=== PATIENT | female | born 1955 | race Caucasian/White ===

== ENCOUNTER 2025-04-25 16:04 | Emergency (ER) | payer MEDICARE, OTHER, SELFPAY ==
--- NOTE | ~2025-04-25 | XR_ITS ---
EXAMINATION: XR chest 2V, 04/25/2025 16:45 CDT HISTORY: Cough, 1 month, history of COVID COMPARISON: No comparisons available. Technique: 2 views obtained. Findings: Small right lower lobe infiltrate No pneumothorax. Heart is normal size. Mediastinal and hilar contours are within normal limits. Bony thorax no acute abnormality. Impression: Small right lower lobe pneumonia Reviewed, dictated and finalized at location P. Impression: Small right lower lobe pneumonia
--- NOTE | 2025-04-25 16:11 | ED_ITS ---
HPI - URI/Sore Throat General Chief Complaint: Upper Respiratory Infection Stated Complaint: Cough/Sinus Time Seen by Provider: 04/25/25 16:20 Source: patient, RN notes reviewed and old records reviewed Mode of arrival: ambulatory Limitations: no limitations History of Present Illness HPI Narrative: 69-year-old female presents to the [facility] with a cough and sinus drainage for 1 month. States that started when she has self tested positive for COVID-19 1 month ago. Was seen at an urgent care on April 11, prescribe Zyrtec, Flonase and a steroid. Was prescribe doxycycline on April 16 Reports after both treatments finished symptoms did not improve. Denies chest pain or shortness of breath. Has not followed up with PCM. Onset (ago): month(s) (1+) Treatments prior to arrival: cold medicine and antibiotics Related Data Allergies Allergy/AdvReac Type Severity Reaction Status Date / Time Penicillins Allergy Unknown Anaphylaxis Verified 04/25/25 16:09 Review of Systems Review of Systems: All systems reviewed & are unremarkable except as noted in HPI and below Constitutional: Constitutional: Reports no additional constitutional complaints ENT: Reports as per HPI Cardiovascular: Cardiovascular: Reports no additional cardiovascular complaints, Denies chest pain and Denies dyspnea Respiratory: Respiratory: Reports as per HPI, Reports chest congestion, Reports cough, Denies pain with cough and Denies dyspnea Musculoskeletal: Musculoskeletal: Reports no additional musculoskeletal complaints Integumentary/Breasts: Skin/Breast: Reports system reviewed and no additional complaints, except as docu PMFSH Past Medical History Medical History Pneumonia Liver disease Family History Family History Father Diabetes mellitus Social History Social History Smoking packs per day: 1 Smoking cigarettes per day: 20.0 Smoking status: Current every day smoker Second hand tobacco smoke exposure: Yes Alcohol intake: never Substance use: never Substance use type: does not use Do You Feel Safe in your Home?: Yes Lack of Transportation: No Lack of Food: Never True Current Housing: I Have Housing Concerned About Future Housing: No Difficulty Paying Gas/Electric Bills: No Difficulty Paying for Meds: No Currently Unemployed: No Education: Associate Degree Difficulty w/ Childcare or Family Care: No Living arrangements: alone Occupation/Education: retired Additional occupation/education comments: [employer] Gender identity (if verbalized by the patient): Female Comments At the time of my signature, I reviewed and agree with the nursing past medical, surgical, social, and family history. There is no relevant family history pertinent to the patient complaint. Exam Const: General: cooperative, no acute distress, well developed, alert, tired appearing and well nourished Nutritional Appearance: well nourished Orientation/consciousness: patient oriented x3 Limitations: no limitations HENMT: Head: normal to inspection Ears: hearing grossly normal bilaterally, external ears normal, TM's normal bilaterally, EAC's normal, mastoids normal and no periauricular adenopathy Throat: posterior oropharynx normal, uvula midline and no uvular edema Eyes: General: appearance normal, both eyes and all related structures Alignment and Position: alignment normal Neck: Neck: normal visual inspection, full ROM, no lymphadenopathy and no meningeal signs Chest: Chest palpation & inspection: normal inspection of the chest Resp: Effort & Inspection: normal respiratory effort and able to speak in complete sentences Auscultation: no crackles, no rales, no rhonchi, no wheezes and diminished lung sounds bilateral Cardio: Rate: regular rate Skin: General skin exam: normal color and no rashes or lesions noted Neuro: General: patient oriented x3, gait normal, moves all extremities and no meningeal signs Cognition (Neuro): normal cognition Speech: normal speech Gait exam (Neuro): Normal gait present Extrem: General: normal to inspection, full ROM, capillary refill normal and normal gait Psych: Appearance: grossly normal and well kempt Mental Status: mental status grossly normal Speech and movement: Normal speech and movement present and Clear speech present Affect: normal affect Attitude: cooperative Course Course Level of Care: Express Care Visit Vital Signs Vital signs: Vital Signs Temperature 98.2 F 04/25/25 16:18 Pulse Rate 70 04/25/25 16:18 Respiratory Rate 20 04/25/25 16:18 Blood Pressure 150/54 H 04/25/25 16:18 Pulse Oximetry 98 04/25/25 16:18 Oxygen Delivery Room Air 04/25/25 16:18 Temperature 98.2 F 04/25/25 16:18 Pulse Rate 70 04/25/25 16:18 Respiratory Rate 20 04/25/25 16:18 Blood Pressure 150/54 H 04/25/25 16:18 Pulse Oximetry 98 04/25/25 16:18 Oxygen Delivery Room Air 04/25/25 16:18 Reviewed MDM - URI/Sore Throat MDM Narrative Medical decision making narrative: Patient sitting in exam room. Patient is nontoxic, vitals stable. Patient presents with symptoms that started a month ago with COVID-19, self test. Was seen at a different Urgent Care prescribed medications that also included doxycycline. X-ray shows a right lower lobe pneumonia. Due to patient recently being on doxycycline and her allergy to penicillins, prescribed Levaquin. Discussed signs and symptoms to proceed to the emergency room which included pain in the legs. Increased shortness of breath, fevers. Discharge instructions reviewed with patient, as well as provided in writing per nursing staff. The instructions also include specific and strict return/GO TO THE ER as well as f/u information. All questions have been answered, and the patient deny any further questions with discharge and discharge plan. Some parts of this dictation were generated by voice recognition software and may contain typographical and/or grammatical inaccuracies. Differential Diagnosis Differential diagnosis: Likely upper respiratory infection, otitis media, sinusitis, viral infection, bronchitis, influenza and pharyngitis Imaging Data Radiologist's impression: EXAMINATION: XR chest 2V, 04/25/2025 16:45 CDT HISTORY: Cough, 1 month, history of COVID COMPARISON: No comparisons available. Technique: 2 views obtained. Findings: Small right lower lobe infiltrate No pneumothorax. Heart is normal size. Mediastinal and hilar contours are within normal limits. Bony thorax no acute abnormality. Impression: Small right lower lobe pneumonia Critical Care Time Critical Care Time Critical Care Time: No Discharge Plan Discharge Clinical Impression: Right lower lobe pneumonia Patient Disposition: Home Condition: Stable Instructions: Pneumonia (ED) Additional Instructions: Please follow-up with your primary care provider in 1 week for re-evaluation of your pneumonia. It is recommended you get a repeat chest x-ray to make sure your pneumonia is clearing. Today your blood pressure is 150/54. Is recommended you follow-up with your primary care provider within 1 week to have this rechecked. Use your albuterol inhaler 3 times a day on a regular basis. Use Flonase nasal spray for your postnasal drainage Take the Zyrtec daily If you develop chest pain, significant shortness of breath. Please proceed to the nearest emergency room Patient Language: Greek Prescriptions: New albuterol sulfate 90 mcg/actuation HFA aerosol inhaler 2 puff inhalation QID PRN (Reason: shortness of breath or wheezing) Qty: 6.7 0RF (DME) Aerochamber MV Spacer See Rx Instructions .Route Qty: 1 0RF Rx Instructions: As directed levofloxacin 750 mg tablet 750 mg PO DAILY Qty: 5 0RF Follow-up/Referrals: PHYSICIAN,[facility] ANALYS[employer] WELL LOGGING OPERATOR [Primary Care Provider, Internal Medicine] Time of Disposition: 17:16
[2025-04-25 16:18] VITALS: BP 150/54; PULSE 70; RESP 20; TEMP 36.8; O2SAT 98
== END 2025-04-25 17:21 | disposition home or self-care (01) ==
PROVIDERS: Emergency Provider Nurse Practitioner
DX: J18.1 Lobar pneumonia, unspecified organism (principal); F17.210 Nicotine dependence, cigarettes, uncomplicated; K76.9 Liver disease, unspecified
CPT/HCPCS: 71046; 99213; G0463